=== PATIENT | female | born 1930 | race Caucasian/White ===

== ENCOUNTER → 2016-07-18 | Outpatient (CLI) | payer MEDICARE, OTHER | END | disposition home or self-care (01) | LOC: LAB.O 09:21 | PROVIDERS: ATTEND Family Medicine | DX: I48.91 Unspecified atrial fibrillation (principal); Z79.899 Other long term (current) drug therapy ==

== ENCOUNTER → 2016-08-17 | Outpatient (CLI) | payer MEDICARE, OTHER | END | disposition home or self-care (01) | LOC: LAB.O 11:52 | PROVIDERS: ATTEND Family Medicine | DX: I48.91 Unspecified atrial fibrillation (principal) ==

== ENCOUNTER → 2016-09-13 | Outpatient (CLI) | payer MEDICARE, OTHER | END | disposition home or self-care (01) | LOC: GMAJ 13:40 | PROVIDERS: ATTEND Family Medicine | DX: I48.91 Unspecified atrial fibrillation (principal) ==

== ENCOUNTER 2016-09-25 16:42 | Emergency (ER) | payer MEDICARE, OTHER ==
--- NOTE | 2016-09-25 17:21 | ED.PDOC ---
History of Present Illness - General Chief Complaint: Upper Extremity Injury Stated Complaint: right elbow and hand pain Time Seen by Provider: 09/25/16 17:12 Source: patient, RN notes reviewed, Vital Signs reviewed Exam Limitations: no limitations - History of Present Illness Initial Comments: Patient is an 85 y/o female who was climbing over a board she has up to keep her dogs out of the garage. She believes the heel on her boot got caught, and she fell on her right side. She has right elbow pain, moderate, increased with flexion, and right knee pain. Timing/Duration: 1 hour Severity: moderate Improving Factors: immobilization Worsening Factors: movement Associated Symptoms: denies symptoms Allergies/Adverse Reactions: Allergies Penicillins Allergy (Intermediate, Verified 09/25/16 17:12) Codeine Allergy (Mild, Verified 09/25/16 17:12) Home Medications: Ambulatory Orders Propafenone HCl [Rythmol] 225 mg PO BID 12/19/13 Warfarin Sodium 3 mg PO DAILY 12/19/13 Warfarin Sodium 4 mg PO DAILY 12/19/13 Cyclobenzaprine HCl [Flexeril] 10 mg PO TID PRN #30 tab 09/25/16 Review of Systems - Review of Systems Constitutional: States: no symptoms reported EENTM: States: no symptoms reported Respiratory: States: no symptoms reported Cardiology: States: see HPI Gastrointestinal/Abdominal: States: no symptoms reported Genitourinary: States: no symptoms reported Musculoskeletal: States: joint pain, joint swelling, muscle pain, muscle stiffness Skin: States: change in color Neurological: States: no symptoms reported Endocrine: States: no symptoms reported Hematologic/Lymphatic: States: no symptoms reported Past Medical History (General) - Patient Medical History Hx Cardiac Disorders: Yes - Vaccination History Hx Tetanus, Diphtheria Vaccination: No Hx Influenza Vaccination: No - Social History Hx Tobacco Use: No Hx Alcohol Use: No Hx Substance Use: No Hx Substance Use Treatment: No Hx Depression: No - Activities of Daily Living Hospice Agency (if applicable):: None - Female History Patient is a Female of Child Bearing Age (10 -59 yrs old): No Patient : No Family Medical History - Family History Mother Family History: Unknown Physical Exam - Physical Exam General Appearance: Alert, Comfortable, Obvious distress - Mild distress Ears, Nose, Throat: hearing grossly normal, normal ENT inspection Neck: non-tender, full range of motion, supple Respiratory: no respiratory distress Peripheral Pulses: radial,right: 2+, radial,left: 2+ Extremity: normal range of motion, no pedal edema, no calf tenderness, swelling - Right knee with contusion/hematoma just medial to the tibial tuberosity. Right elbow, pain medial epicondyle with pain with hyperflexion. + biceps muscle spasm. Progress - Results/Orders Results/Orders: 09/25/16 16:58 Temperature 97.6 F Pulse Rate [ 60 pulse ox] Respiratory 20 Rate Blood Pressure 161/79 [Left Arm] O2 Sat by Pulse 95 Oximetry X-rays of Right elbow, forearm, and knee showed no fracture or acute process. - EKG/XRAY/CT XRAY: See Results/Orders Departure - Departure Clinical Impression: Fall as cause of accidental injury in home as place of occurrence Strain of elbow Qualifiers: Encounter type: initial encounter Laterality: right Qualifier Code: (S56.911A) Strain of unspecified muscles, fascia and tendons at forearm level, right arm, initial encounter Contusion of elbow Qualifiers: Encounter type: initial encounter Laterality: right Qualifier Code: (S50.01XA) Contusion of right elbow, initial encounter Contusion of knee Qualifiers: Encounter type: initial encounter Laterality: right Qualifier Code: (S80.01XA) Contusion of right knee, initial encounter Time of Disposition: 19:04 Disposition: Discharge to Home or Self Care Condition: Fair Departure Forms: ED Discharge - Pt. Copy, Patient Portal Self Enrollment Instructions: Elbow Sprain, DI for Knee Pain, DI for Contusion, Contusion Diet: resume usual diet Referrals: Derik Zhang MD [Primary Care Provider] - 1-2 Weeks Prescriptions: Cyclobenzaprine HCl [Flexeril] 10 mg PO TID PRN #30 tab PRN Reason: Muscle Spasms Home Medications: Ambulatory Orders Propafenone HCl [Rythmol] 225 mg PO BID 12/19/13 Warfarin Sodium 3 mg PO DAILY 12/19/13 Warfarin Sodium 4 mg PO DAILY 12/19/13 Cyclobenzaprine HCl [Flexeril] 10 mg PO TID PRN #30 tab 09/25/16 Additional Instructions: Follow up with PCP if symptoms persist or ED if symptoms worsen.
--- NOTE | 2016-09-25 18:11 | RAD ---
EXAM: Elbow,Right 3 Views (accession [id number]), Forearm,Right (accession [id number]) CLINICAL INDICATION: 85-year-old female with pain status post fall. COMPARISON: None. TECHNIQUE: Two views the RIGHT forearm were obtained in AP and lateral projection. Three views RIGHT elbow were obtained in oblique and oblique projections. FINDINGS: RIGHT forearm: There is no fracture or dislocation. The joint spaces are preserved. No soft tissue abnormalities are seen. RIGHT elbow: There is no fracture or dislocation. The joint spaces are preserved. No soft tissue abnormalities are seen. IMPRESSION: No acute radiographic abnormality. Electronically signed by: America Walden MD 09/25/2016 6:10 PM CDT
--- NOTE | 2016-09-25 18:11 | RAD ---
EXAM: Elbow,Right 3 Views (accession [id number]), Forearm,Right (accession [id number]) CLINICAL INDICATION: 85-year-old female with pain status post fall. COMPARISON: None. TECHNIQUE: Two views the RIGHT forearm were obtained in AP and lateral projection. Three views RIGHT elbow were obtained in oblique and oblique projections. FINDINGS: RIGHT forearm: There is no fracture or dislocation. The joint spaces are preserved. No soft tissue abnormalities are seen. RIGHT elbow: There is no fracture or dislocation. The joint spaces are preserved. No soft tissue abnormalities are seen. IMPRESSION: No acute radiographic abnormality. Electronically signed by: America Walden MD 09/25/2016 6:10 PM CDT
--- NOTE | 2016-09-25 18:11 | RAD ---
EXAM: Knee,Right Complete CLINICAL INDICATION: 85-year-old female status post fall. TECHNIQUE: Three views RIGHT knee were obtained in AP, lateral and oblique projections COMPARISON: None. FINDINGS: There is no fracture or dislocation. The joint spaces are preserved. No soft tissue abnormalities are seen. Mild degenerative changes noted with sharpening of the tibial spines and tricompartmental osteophytes. IMPRESSION: No acute radiographic abnormality. Electronically signed by: America Walden MD 09/25/2016 6:11 PM CDT
[2016-09-25] MEDS ORDERED: CYCLOBENZAPRINE TAB (ER DISP) 10 MG TAB PO ONE (19:07)
[2016-09-25 19:25] VITALS: BP 156/73; TEMP 97.9; O2SAT 97
== END 2016-09-25 19:25 | disposition home or self-care (01) ==
LOC: ER 16:42
DX: S56.911A Strain of unspecified muscles, fascia and tendons at forearm level, right arm, initial encounter (principal); S50.01XA Contusion of right elbow, initial encounter; S80.01XA Contusion of right knee, initial encounter; Z88.0 Allergy status to penicillin; Z88.6 Allergy status to analgesic agent; Z79.01 Long term (current) use of anticoagulants; Z79.899 Other long term (current) drug therapy; W18.09XA Striking against other object with subsequent fall, initial encounter; Y92.008 Other place in unspecified non-institutional (private) residence as the place of occurrence of the external cause

== ENCOUNTER → 2016-10-18 | Outpatient (CLI) | payer MEDICARE, OTHER | END | disposition home or self-care (01) | LOC: LAB.O 16:13 | PROVIDERS: ATTEND Family Medicine | DX: I48.91 Unspecified atrial fibrillation (principal) ==

== ENCOUNTER → 2016-12-07 | Outpatient (CLI) | payer MEDICARE, OTHER | END | disposition home or self-care (01) | LOC: LAB.O 14:22 | PROVIDERS: ATTEND Family Medicine | DX: I48.91 Unspecified atrial fibrillation (principal) ==

== ENCOUNTER → 2016-12-28 | Outpatient (CLI) | payer MEDICARE, OTHER | LOC: LAB.O 10:28 | PROVIDERS: ATTEND Family Medicine | DX: I48.91 Unspecified atrial fibrillation (principal) ==

== ENCOUNTER → 2017-01-02 | Outpatient (CLI) | payer MEDICARE, OTHER | END | disposition home or self-care (01) | LOC: LAB.O 09:49 | PROVIDERS: ATTEND Family Medicine | DX: Z79.899 Other long term (current) drug therapy (principal); I48.91 Unspecified atrial fibrillation ==

== ENCOUNTER → 2017-02-02 | Outpatient (CLI) | payer MEDICARE, OTHER | END | disposition home or self-care (01) | LOC: LAB.O 14:16 | PROVIDERS: ATTEND Family Medicine | DX: I48.91 Unspecified atrial fibrillation (principal) ==

== ENCOUNTER → 2017-03-02 | Outpatient (CLI) | payer MEDICARE, OTHER | END | disposition home or self-care (01) | LOC: LAB.O 14:19 | PROVIDERS: ATTEND Family Medicine | DX: I48.91 Unspecified atrial fibrillation (principal); Z79.899 Other long term (current) drug therapy ==

== ENCOUNTER 2017-09-02 14:35 | Emergency (ER) | payer MEDICARE, OTHER ==
[2017-09-02 14:53] VITALS: TEMP 97.6
[2017-09-02] MEDS ORDERED: ONDANSETRON ODT 8 MG TAB SL ONE (15:00)
[2017-09-02] MEDS ORDERED: SODIUM CHLORIDE 0.9% 1000ML 1,000 ML IVS ONE (15:00)
--- NOTE | 2017-09-02 16:16 | RAD ---
EXAM DESCRIPTION: Abdomen Series CLINICAL HISTORY: 86 years Female ,nausea dizziness COMPARISON: None. TECHNIQUE: Frontal view chest x-ray and two views of the abdomen. FINDINGS: The cardiomediastinal silhouette appears unremarkable. No consolidating infiltrates or pleural effusions. Small amount of apical scarring is present. No free air is identified beneath the hemidiaphragms. No dilated loops of bowel to suggest obstruction. IMPRESSION: No acute plain film abnormality is identified. Electronically signed by: Mitra Flowers MD 09/02/2017 4:13 PM CDT
[2017-09-02 16:36] VITALS: O2SAT 98
[2017-09-02] MEDS ORDERED: PROMETHAZINE HCL 25 MG TAB PO ONE (17:20)
--- NOTE | 2017-09-02 17:23 | ED.PDOC ---
History of Present Illness - General Chief Complaint: General Stated Complaint: dizziness Time Seen by Provider: 09/02/17 14:43 Source: patient Exam Limitations: no limitations - History of Present Illness Initial Comments: the patient's 86-year-old female presenting to the emergency room secondary to some mild dizziness and some nausea starting this morning, now at least 8 hours already. She reports she was feeling okay yesterday. No fevers, sore throat or runny nose. No cough or shortness of breath. No diarrhea. She has not thrown up as almost doughnut for 5 times. She feels dizzy at times but no signs of true vertigo. She has no nystagmus. No neurological changes otherwise. She has not eaten or drank much today. No abdominal pain. No urinary symptoms. no chest pain, back pain, palpitations or shortness of breath. Timing/Duration: 24 hours Severity: moderate Improving Factors: nothing Worsening Factors: nothing Associated Symptoms: malaise, nausea/vomiting Allergies/Adverse Reactions: Allergies Penicillins Allergy (Intermediate, Verified 09/25/16 17:12) Codeine Allergy (Mild, Verified 09/25/16 17:12) Home Medications: Ambulatory Orders Propafenone HCl [Rythmol] 225 mg PO BID 12/19/13 Promethazine HCl 25 mg PO Q6H PRN #10 tab 09/02/17 Review of Systems - Review of Systems Constitutional: States: malaise EENTM: States: no symptoms reported Respiratory: States: no symptoms reported Cardiology: States: no symptoms reported Gastrointestinal/Abdominal: States: nausea Musculoskeletal: States: no symptoms reported Skin: States: no symptoms reported Neurological: States: other - mild dizziness Endocrine: States: no symptoms reported All other Systems: No Change from Baseline Past Medical History (General) - Patient Medical History Hx Stroke: No Hx Cardiac Disorders: Yes - Atrial fib Hx Congestive Heart Failure: No Hx Diabetes: No - Vaccination History Hx Tetanus, Diphtheria Vaccination: No Hx Influenza Vaccination: No Hx Pneumococcal Vaccination: No - Social History Hx Tobacco Use: Yes Hx Alcohol Use: No Hx Substance Use: No Hx Substance Use Treatment: No Hx Depression: No - Female History Patient : No Family Medical History - Family History Mother Family History: Unknown Physical Exam - Physical Exam General Appearance: Alert, Comfortable, No apparent distress Eye Exam: bilateral normal Ears, Nose, Throat: hearing grossly normal, normal ENT inspection, normal pharynx, other - the right ear has moderate amount of cerumen. The left ear is fairly clear. 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, alert, normal mood/affect, oriented x 3 Skin Exam: normal color Comments: Vital Signs - 24 hr 09/02/17 09/02/17 09/02/17 14:48 15:13 15:15 Temperature 97.6 F Pulse Rate [ 67 63 63 Left Brachial] Respiratory 16 14 16 Rate Blood Pressure 159/78 139/75 151/77 [Left Arm] O2 Sat by Pulse 98 97 97 Oximetry 09/02/17 09/02/17 15:16 16:15 Temperature Pulse Rate [ 63 68 Left Brachial] Respiratory 16 20 Rate Blood Pressure 161/70 145/71 [Left Arm] O2 Sat by Pulse 99 98 Oximetry Progress - Progress Progress: 09/02/17 17:24 the patient's 86-year-old female presenting to the emergency room with some dizziness and nausea. Lab work and x-ray appear reassuring. She is feeling better after the IV fluids. She did have some mild dehydration. Diagnosis is viral syndrome. She'll be written for Phenergan for as needed use. She needs to keep herself well hydrated. Eats small frequent meals and a bland diet for the next day or 2. She should follow-up with her primary care doctor in a couple of days otherwise. ER warnings were given for any significant worsening. 09/02/17 17:26 - Results/Orders Results/Orders: 09/02/17 15:00 Telemetry .CONTINUOUS 09/02/17 15:01 Vital Signs-Tilt PRN Laboratory Results - last 24 hr 09/02/17 09/02/17 09/02/17 15:14 15:14 15:14 WBC 6.9 RBC 4.18 L Hgb 13.1 Hct 38.3 MCV 91.7 MCH 31.3 H MCHC 34.2 RDW 12.8 Plt Count 171 MPV 7.7 Absolute Neuts (auto) 4.60 Absolute Lymphs (auto) 1.80 Absolute Monos (auto) 0.40 Absolute Eos (auto) 0.10 Absolute Basos (auto) 0.00 Neutrophils % 66.8 Lymphocytes % 26.5 Monocytes % 5.6 Eosinophils % 0.8 L Basophils % 0.3 PT 11.2 INR 0.990 PTT (SP) 30.0 Sodium 138 Potassium 3.6 Chloride 105 Carbon Dioxide 27 Anion Gap 9.6 L BUN 12 Creatinine 0.79 BUN/Creatinine Ratio 15.2 Random Glucose 109 H Serum Osmolality 276.0 Calcium 9.2 Total Bilirubin 0.7 AST 20 ALT 15 Alkaline Phosphatase 62 Creatine Kinase 50 CK-MB (CK-2) 2.1 CK-MB (CK-2) % Not Reportable Troponin I 0.06 H Serum Total Protein 6.6 Albumin 4.2 Globulin 2.4 Albumin/Globulin Ratio 1.8 Amylase 56 Lipase 28 Urine Color Urine Appearance Urine pH Ur Specific [place] Urine Protein Urine Glucose (UA) Urine Ketones Urine Blood Urine Nitrite Urine Bilirubin Urine Urobilinogen Ur Leukocyte Esterase Urine RBC Urine WBC Ur Epithelial Cells Urine Bacteria 09/02/17 16:24 WBC RBC Hgb Hct MCV MCH MCHC RDW Plt Count MPV Absolute Neuts (auto) Absolute Lymphs (auto) Absolute Monos (auto) Absolute Eos (auto) Absolute Basos (auto) Neutrophils % Lymphocytes % Monocytes % Eosinophils % Basophils % PT INR PTT (SP) Sodium Potassium Chloride Carbon Dioxide Anion Gap BUN Creatinine BUN/Creatinine Ratio Random Glucose Serum Osmolality Calcium Total Bilirubin AST ALT Alkaline Phosphatase Creatine Kinase CK-MB (CK-2) CK-MB (CK-2) % Troponin I Serum Total Protein Albumin Globulin Albumin/Globulin Ratio Amylase Lipase Urine Color Yellow Urine Appearance Clear Urine pH 7.5 Ur Specific [place] 1.020 Urine Protein Negative Urine Glucose (UA) Negative Urine Ketones Negative Urine Blood Trace-intact H Urine Nitrite Negative Urine Bilirubin Negative Urine Urobilinogen 0.2 Ur Leukocyte Esterase Negative Urine RBC 0-1 Urine WBC 0 Ur Epithelial Cells 0-1 Urine Bacteria 0 acute abdominal series shows no evidence of any acute pathology. Departure - Departure Clinical Impression: Viral syndrome Disposition: Discharge to Home or Self Care Condition: Fair Departure Forms: ED Discharge - Pt. Copy, Patient Portal Self Enrollment Instructions: DI for Viral Syndrome Diet: bland diet Activity: increase activity as tolerated Referrals: Derik Zhang MD [Primary Care Provider] - 1-2 Weeks Prescriptions: Promethazine HCl 25 mg PO Q6H PRN #10 tab PRN Reason: Vomiting Home Medications: Ambulatory Orders Propafenone HCl [Rythmol] 225 mg PO BID 12/19/13 Promethazine HCl 25 mg PO Q6H PRN #10 tab 09/02/17 Additional Instructions: the patient's 86-year-old female presenting to the emergency room with some dizziness and nausea. Lab work and x-ray appear reassuring. She is feeling better after the IV fluids. She did have some mild dehydration. Diagnosis is viral syndrome. She'll be written for Phenergan for as needed use. She needs to keep herself well hydrated. Eats small frequent meals and a bland diet for the next day or 2. She should follow-up with her primary care doctor in a couple of days otherwise. ER warnings were given for any significant worsening.
[2017-09-02 18:49] VITALS: BP 153/65
== END 2017-09-02 18:25 | disposition home or self-care (01) ==
LOC: ER 14:35
DX: R42 Dizziness and giddiness (principal); B34.9 Viral infection, unspecified; R11.0 Nausea; I48.91 Unspecified atrial fibrillation; Z87.891 Personal history of nicotine dependence
CPT/HCPCS: 36415; 74019; 80053; 81001; 82150; 82550; 82553; 83690; 84484; 85025; 85610; 85730; J7030; Q0169

== ENCOUNTER → 2017-09-05 | Outpatient (CLI) | payer MEDICARE, OTHER ==
--- NOTE | 2017-09-05 15:40 | CT ---
Procedure: CT HEAD WITHOUT IV CONTRAST Exam Date: 09/05/2017 Ordering Provider: ABE WHITTEN Clinical Indication: AMS Comparison: 09/20/2006 Technique: Using a helical scanner, sequential axial imaging of the brain was obtained without the administration of intravenous contrast. The exam was obtained from the skull base to vertex. This exam was performed according to our departmental dose optimization program which includes use of automated exposure control, adjustment of the mA and/or kV according to patient size and/or use of iterative reconstruction technique. Findings: Ventricular size and configuration are normal. There is no midline shift or hydrocephalus. There is no acute intracranial hemorrhage or mass effect. There is no CT evidence of acute infarct. Eastman-white differentiation is maintained No displaced skull fracture. There is no lytic or sclerotic lesion. The visualized paranasal sinuses and mastoid air cells are unremarkable. Vascular calcifications. IMPRESSION: No acute intracranial abnormality demonstrated. Electronically signed by: Jaret Corrigan MD 09/05/2017 3:38 PM CDT
== END ==
LOC: CT 14:54
PROVIDERS: ATTEND Family Medicine
DX: R41.82 Altered mental status, unspecified (principal)